=== PATIENT | female | born 1980 | race Caucasian/White ===

== ENCOUNTER 2019-06-16 22:53 | Inpatient (IN) | payer OTHER ==
[~2019-06-16] VITALS: Ht 157.5 cm; Wt 86.0 kg
[2019-06-16] MEDS ORDERED: PRENATAL TABLE1 EAC2 PO (23:36)
[2019-06-17 00:25] LABS: BASOPHILS ABSOLUTE AUTO 0.03 K/mm3 (0.00-0.23); BASOPHILS PERCENT AUTO 0 % (0-2); EOSINOPHILS ABSOLUTE AUTO 0.26 K/mm3 (0.00-0.68); EOSINOPHILS PERCENT AUTO 3 % (0-6); Hematocrit 30.1 % (33.0-51.0); Hemoglobin 9.4 g/dL (11.5-16.0); IMMATURE GRAN ABSOLUTE AUTO 0.08 K/mm3 (0.00-0.10); IMMATURE GRAN PERCENT AUTO 1 % (0-1); LYMPHOCYTES ABSOLUTE AUTO 2.57 K/mm3 (0.84-5.20); LYMPHOCYTES PERCENT AUTO 25 % (21-46); MONOCYTES ABSOLUTE AUTO 0.49 K/mm3 (0.16-1.47); MONOCYTES PERCENT AUTO 5 % (4-13); Mean Corpuscular HGB 25.8 pg (26.0-34.0); Mean Corpuscular HGB Conc 31.2 g/dL (31.5-36.5); Mean Corpuscular Volume 83 fL (80-100); Mean Platelet Volume 10.8 fL (9.1-12.4); NEUTROPHILS ABSOLUTE AUTO 6.77 K/mm3 (1.96-9.15); NEUTROPHILS PERCENT AUTO 66 % (41-73); Platelet Count 432 K/mm3 (150-400); RDW Coefficient Variation 15.4 % (11.7-14.2); RDW Standard Deviation 46.8 fL (35.1-46.3); Red Blood Cell Count 3.65 M/mm3 (3.80-5.20)
[2019-06-17 07:05] LABS: U Amphetamine Screen DETECTED; U Barbituate Screen Not Detected; U Benzodiazapine Screen Not Detected; U Buprenorphine Screen Not Detected; U Cannabinoids Screen Not Detected; U Cocaine Screen Not Detected; U Methadone Screen Not Detected; U Methamphetamine Screen DETECTED; U Opiates Screen Not Detected; U Oxycodone Screen Not Detected; U Phencyclidine Screen Not Detected; U Propoxyphene Screen Not Detected
--- NOTE | 2019-06-17 20:51 | NUR ---
pt out to smoke with mother and sister. iv removed. pt warned of bleeding concerns and decides to leave anyway. baby at desk.
--- NOTE | 2019-06-17 21:42 | NUR ---
pt back to room
--- NOTE | 2019-06-17 21:56 | NUR ---
When I first came on to shift, baby was skin to skin with mom . after about 20 minutes I asked if she would like me to bathe the baby and she said "Yes I think she would like that." As I was bathing her, Cynthia turned her back towards the baby and I and fell asleep soundly snoring. There was no engagement with her baby or me bathing her. After the bath and the security bands were placed, Cynthia was difficult to arouse. Once I woke her up, I told her that I swaddled Patterson and put her in her crib. Shortly after Leo and I returned to the room to get her up so she could shower and she was difficult to arouse again, once she was out of the shower she immedidately asked if she could go outside and smoke. I notified her of her bleeding risks and she said she would still like to go outside. IV removed. Baby was then up at the desk with nursing staff while pt was outside for almost 1 hour with sister and mother chau at side. Will monitor interactions throughout the night.
--- NOTE | 2019-06-17 22:42 | NUR ---
report to joie trevino rn.
[2019-06-18 03:07] LABS: HIV SCREEN 4TH GENERATION WRFX Non Reactive (Non Reactive)
--- NOTE | 2019-06-18 08:23 | NUR ---
PT DIFFICULT TO WAKE UP THIS MORNING FOR BREAKFAST AND TO FEED BABY. NB SHOWING EARLY HUNGER CUES, SMACKING LIPS AND THRUSTING TONGUE. i EXPLAINED THIS TO THE MOTHER AND GRANDMOTHER THAT WHEN THEY SEE BABY DO THIS IT IS TIME TO FEED EVEN IF SHE IS NOT CRYING. THE MOTHER JUST SAID TO GIVE THE BABY THE BOTTLE. I ASKED THE PATIENT IF SHE WANTED HER MOTHER TO FEED THE BABY WITH THE BOTTLE AND SHE SAID YES. THE GRANDMOTHER DIDNT KNOW HOW TO PUT THE NIPPLE ON THE BOTTLE, SO I PREPARED THE BOTTLE AND EXPLAINED TO THE GRANDMOTHER THAT I WAS POURING OUT HALF SO THE BABY WOULDNT OVER EAT. AND SHOWED HER HOW TO BOTTLE FEED THE
[2019-06-18 09:48] LABS: BASOPHILS ABSOLUTE AUTO 0.04 K/mm3 (0.00-0.23); BASOPHILS PERCENT AUTO 0 % (0-2); EOSINOPHILS ABSOLUTE AUTO 0.25 K/mm3 (0.00-0.68); EOSINOPHILS PERCENT AUTO 2 % (0-6); Hematocrit 28.9 % (33.0-51.0); Hemoglobin 8.9 g/dL (11.5-16.0); IMMATURE GRAN ABSOLUTE AUTO 0.12 K/mm3 (0.00-0.10); IMMATURE GRAN PERCENT AUTO 1 % (0-1); LYMPHOCYTES ABSOLUTE AUTO 3.32 K/mm3 (0.84-5.20); LYMPHOCYTES PERCENT AUTO 23 % (21-46); MONOCYTES ABSOLUTE AUTO 0.66 K/mm3 (0.16-1.47); MONOCYTES PERCENT AUTO 5 % (4-13); Mean Corpuscular HGB 25.6 pg (26.0-34.0); Mean Corpuscular HGB Conc 30.8 g/dL (31.5-36.5); Mean Corpuscular Volume 83 fL (80-100); Mean Platelet Volume 10.5 fL (9.1-12.4); NEUTROPHILS ABSOLUTE AUTO 10.34 K/mm3 (1.96-9.15); NEUTROPHILS PERCENT AUTO 70 % (41-73); NRBC ABSOLUTE 0.05 K/mm3 (0.00-0.02); NRBC Auto 0.3 /100 WBC (0.0-0.2); Platelet Count 346 K/mm3 (150-400); RDW Coefficient Variation 15.4 % (11.7-14.2); RDW Standard Deviation 46.7 fL (35.1-46.3); Red Blood Cell Count 3.47 M/mm3 (3.80-5.20); White Blood Cell Count 14.73 K/mm3 (4.00-11.30)
--- NOTE | 2019-06-18 12:19 | NUR ---
PATIENT OUT OF THE ROOM.
[2019-06-18] MEDS ORDERED: FERSU300 (13:49)
[2019-06-18] MEDS ORDERED: IBUP800 (13:49)
--- NOTE | 2019-06-18 15:06 | NUR ---
PP F/U NOT MADE PT IS TRAVELING TO [place] FOR COURT.
--- NOTE | 2019-06-18 15:07 | NUR ---
PT D/C WITH AUNT AND MOTHER, AMBULATING. PRINTS WERE GIVEN TO MOTHER.
== END 2019-06-18 15:00 | disposition home or self-care (01) | DRG 806 ==
LOC: OBS 22:53 → BC 22:54 → OBS 22:55 → BC 23:30
PROVIDERS: Family Medicine; ADMIT Advanced Practice Midwife
PROC: 10E0XZZ Delivery of Products of Conception, External Approach (ICD-10-PCS; principal; 2019-06-17)
PROC: 3E033VJ Introduction of Other Hormone into Peripheral Vein, Percutaneous Approach (ICD-10-PCS; 2019-06-17)
PROC: 3E0R3BZ Introduction of Anesthetic Agent into Spinal Canal, Percutaneous Approach (ICD-10-PCS; 2019-06-17)
DX: O42.02 Full-term premature rupture of membranes, onset of labor within 24 hours of rupture (principal); O99.324 Drug use complicating childbirth; Z37.0 Single live birth; O99.334 Smoking (tobacco) complicating childbirth; F17.200 Nicotine dependence, unspecified, uncomplicated; Z3A.38 38 weeks gestation of pregnancy; F19.10 Other psychoactive substance abuse, uncomplicated
CPT/HCPCS: 36415; 51702; 85025; 86317; 86592; 86762; 86850; 86900; 86901; 87081; 87389; 87653; 87902; G0480; J0290; J2001; J2210; J2405; J2590; J3010; J7120; Q0163